=== PATIENT | female | born 1985 | race Caucasian/White ===

== ENCOUNTER 2024-03-07 16:15 | Emergency (ER) | payer MEDICAID ==
[~2024-03-07] VITALS: Ht 157.5 cm; Wt 84.1 kg
[~2024-03-07 16:15] MED LIST: CYCL-1 PO; POTA-188 PO
[2024-03-07 16:28] VITALS: PULSE 107; O2SAT 100
[2024-03-07 18:15] VITALS: RESP 18; TEMP 97.7
== END 2024-03-07 18:18 | disposition home or self-care (01) ==
LOC: ER 16:15
DX: T65.891A Toxic effect of other specified substances, accidental (unintentional), initial encounter (principal); Y92.89 Other specified places as the place of occurrence of the external cause
CPT/HCPCS: 99283

== ENCOUNTER 2024-06-19 14:35 | Emergency (ER) | payer MEDICAID ==
[~2024-06-19] VITALS: Ht 157.5 cm; Wt 59.0 kg
[2024-06-19 14:41] VITALS: BP 225/125; PULSE 107; RESP 24; TEMP 97.4; O2SAT 98
[2024-06-19] MEDS: cloNIDine 0.1 mg tablet PO SCH (14:50)
[2024-06-19] MEDS ORDERED: cloNIDine 0.1 mg tablet PO ONE (14:50)
[2024-06-19] MEDS ORDERED: buprenorphine/naloxone 8MG-2MG SUBlingual film SL ONE (14:55)
[2024-06-19] MEDS: LORazepam 1 MG tablet PO ONE (14:59)
[2024-06-19] MEDS: buprenorphine/naloxone 8MG-2MG SUBlingual film SL SCH (14:59)
== END 2024-06-19 15:21 | disposition home or self-care (01) ==
LOC: ER 14:35
DX: F11.93 Opioid use, unspecified with withdrawal (principal); I10 Essential (primary) hypertension
CPT/HCPCS: 99283

== ENCOUNTER 2024-09-21 09:34 | Inpatient (IN) | payer MEDICAID ==
[~2024-09-21] VITALS: Ht 157.5 cm; Wt 59.1 kg
[2024-09-21] MEDS: buprenorphine/naloxone 8MG-2MG SUBlingual film SL SCH (09:50)
[2024-09-21] MEDS: normal saline 1000ML IV soln IVB ONE (10:20)
[2024-09-21] MEDS: cloNIDine 0.2 MG/24 HR patch (7 day patch) TD ONE (10:24)
[2024-09-21 10:48] LABS: BASOPHILS % (AUTO) 0.4 % (0-1); EOSINOPHILS % (AUTO) 0.1 % (0-6); HEMATOCRIT 51.7 % (35.0-45.0); HEMOGLOBIN 16.8 g/dl (12.0-16.0); LYMPHOCYTES # (AUTO) 1.4 X10'3 (1.1-4.8); LYMPHOCYTES % (AUTO) 13.9 % (21-51); MEAN CORPUSCULAR HEMOGLOBIN 26.1 PG (27.0-31.0); MEAN CORPUSCULAR HGB CONC 32.4 g/dL (33.0-36.5); MEAN CORPUSCULAR VOLUME 80.3 FL (78-98); MONOCYTES # (AUTO) 0.4 X10'3 (0-0.9); MONOCYTES % (AUTO) 4.3 % (2-12); NEUTROPHILS % (AUTO) 81.3 % (42-75); PLATELET COUNT 407 X10'3 (140-440); RED BLOOD COUNT 6.44 X10'6 (4.20-5.60); RED CELL DISTRIBUTION WIDTH 18.2 % (11.5-14.5); WHITE BLOOD COUNT 9.8 X10'3 (4.5-11.0)
[2024-09-21 10:59] LABS: ALANINE AMINOTRANSFERASE 91 U/L (12-78); ALBUMIN 4.2 G/DL (3.4-5.0); ALBUMIN/GLOBULIN RATIO 0.8 (1.1-1.5); ALKALINE PHOSPHATASE 111 IU/L (46-116); ANION GAP 12 (8-16); ASPARTATE AMINO TRANSFERASE 59 U/L (10-37); BLOOD UREA NITROGEN 13 MG/DL (7-18); BUN/CREATININE RATIO 20.3 (10.0-20.0); CALCIUM 9.4 MG/DL (8.5-10.1); CHLORIDE 99 MMOL/L (99-107); CREATININE 0.64 MG/DL (0.40-0.90); GLUCOSE 88 MG/DL (70-104); POTASSIUM 3.2 MMOL/L (3.5-5.1); SODIUM 137 MMOL/L (135-145); TOTAL CARBON DIOXIDE 26.4 MMOL/L (24-32); TOTAL PROTEIN 9.8 G/DL (6.4-8.2); eCRCL 92 ML/MIN; eGFR > 90 ML/MIN
[2024-09-21 11:07] LABS: PRO BRAIN NATRIURETIC PEPTIDE 5442 PG/ML (0-125)
[2024-09-21] MEDS: diazepam inj 5 MG/ML inj. IV ONE (11:42)
[2024-09-21] MEDS: HYDROmorphone inj. 0.5 MG/0.5 ML DISP.SYRIN IV ONE (11:43)
[2024-09-21] MEDS: ondansetron/PF 4mg/2ml inj IV ONE (11:44)
[2024-09-21] MEDS: hydrALAZINE 20mg/ml inj. IV ONE ×2 (12:18→13:23)
[2024-09-21] MEDS ORDERED: magnesium sulf-water 2g/50mL 50 ML IV PRN (13:15)
[2024-09-21] MEDS ORDERED: mag hydrox/Alum hydrox/simeth 30ml oral suspension PO PRN (13:15)
[2024-09-21] MEDS ORDERED: ondansetron 4mg rapidly disintigrating tab PO PRN (13:15)
[2024-09-21] MEDS ORDERED: morphine 2 MG/ML inj. syringe IV PRN (13:15)
[2024-09-21] MEDS ORDERED: magnesium hydroxide 30ml (MOM) UD suspension PO PRN (13:15)
[2024-09-21] MEDS ORDERED: HYDROcodone/acetaminophen 10/325mg tab PO PRN (13:15)
[2024-09-21] MEDS ORDERED: potassium Cl 40MEQ/1/2NS 520ml 520 ML IV PRN (13:15)
[2024-09-21] MEDS ORDERED: acetaminophen 325mg tablet PO PRN ×2 (13:15)
[2024-09-21] MEDS ORDERED: magnesium sulf-water 4G/100mL 100 ML IV PRN (13:15)
[2024-09-21] MEDS ORDERED: potassium Cl 20 mEq SR tablet PO PRN (13:15)
[2024-09-21] MEDS ORDERED: naloxone 0.4 mg/ml inj IV PRN (13:15)
[2024-09-21] MEDS ORDERED: HYDROcodone/acetaminophen 5mg/325mg tablet PO PRN (13:15)
[2024-09-21] MEDS: labetalol 20mg/4ml (5mg/ml) syringe IV STA ×2 (13:34→18:19)
[2024-09-21 13:44] LABS: ETHANOL < 10 MG/DL (<10)
[2024-09-21] MEDS: morphine 2 MG/ML inj. syringe IV PRN (13:54)
[2024-09-21] MEDS: labetalol 20mg/4ml (5mg/ml) syringe IV ONE (15:00)
[2024-09-21] MEDS ORDERED: NO HOME MEDS (15:12)
[2024-09-21] MEDS ORDERED: hydrALAZINE 20mg/ml inj. IV PRN ×2 (16:00→16:05)
[2024-09-21 16:19] LABS: URINE AMPHETAMINE SCREEN POSITIVE (Neg); URINE BARBITUATE SCREEN NEGATIVE (Neg); URINE BENZODIAZEPINES SCREEN NEGATIVE (Neg); URINE CANNABINOID SCREEN NEGATIVE (Neg); URINE COCAINE SCREEN NEGATIVE (Neg); URINE METHADONE SCREEN NEGATIVE (Neg); URINE OPIATE SCREEN POSITIVE (Neg); URINE PHENCYCLIDINE SCREEN NEGATIVE (Neg)
[2024-09-21] MEDS: ondansetron/PF 4mg/2ml inj IV PRN (18:29)
[2024-09-21 18:44] VITALS: BP 173/106; PULSE 82; RESP 27; TEMP 98.1; O2SAT 99
[2024-09-21] MEDS: carvedilol 6.25mg tablet PO SCH (19:40)
[2024-09-21] MEDS: amLODIPine 5mg tablet PO ONE (19:40)
[2024-09-21] MEDS: losartan 50mg tablet PO ONE (19:41)
[2024-09-21] MEDS: heparin, porcine 5000 units/ml vial SQ SCH (19:43)
[2024-09-21] MEDS: docusate sod 100mg capsule PO SCH (19:47)
[2024-09-21 20:00] VITALS: RESP 27; O2SAT 99
[2024-09-21] MEDS: K and/or MAG REPLACEMENT MC SCH (20:00)
[2024-09-21] MEDS: labetalol 20mg/4ml (5mg/ml) syringe IV PRN (20:55)
[2024-09-21] MEDS: nitroGLYCERIN 0.1mg/hour patch TD ONE (21:14)
[2024-09-21] MEDS: potassium Cl 20 mEq SR tablet PO PRN (21:17)
[2024-09-21 22:00] VITALS: BP 178/96; PULSE 86; RESP 19; TEMP 97.5; O2SAT 96
[2024-09-21] MEDS ORDERED: hydrALAZINE 20mg/ml inj. IV ONE (22:10)
[2024-09-21] MEDS: hydrALAZINE 20mg/ml inj. IV PRN (23:41)
[2024-09-21] MEDS: methadone 10mg tablet PO SCH (23:44)
[2024-09-21] MEDS: aspirin 81mg, enteric-coated 1 TAB TABLET.DR PO ONE (23:45)
[2024-09-22] VITALS (13 sets, daily range): BP systolic 140–171; BP diastolic 89–110; PULSE 78–97; RESP 9–29; TEMP 96.7–98.2; O2SAT 95–98
[2024-09-22 07:05] LABS: BASOPHILS % (AUTO) 0.1 % (0-1); EOSINOPHILS % (AUTO) 0.1 % (0-6); HEMATOCRIT 46.7 % (35.0-45.0); LYMPHOCYTES # (AUTO) 1.7 X10'3 (1.1-4.8); LYMPHOCYTES % (AUTO) 15.5 % (21-51); MEAN CORPUSCULAR HEMOGLOBIN 26.1 PG (27.0-31.0); MEAN CORPUSCULAR HGB CONC 32.1 g/dL (33.0-36.5); MEAN CORPUSCULAR VOLUME 81.3 FL (78-98); MEAN PLATELET VOLUME 7.6 FL (7.4-10.4); MONOCYTES # (AUTO) 1.1 X10'3 (0-0.9); MONOCYTES % (AUTO) 9.5 % (2-12); NEUTROPHILS # (AUTO) 8.4 X10'3 (1.8-7.7); NEUTROPHILS % (AUTO) 74.8 % (42-75); PLATELET COUNT 374 X10'3 (140-440); RED BLOOD COUNT 5.74 X10'6 (4.20-5.60); RED CELL DISTRIBUTION WIDTH 18.9 % (11.5-14.5); WHITE BLOOD COUNT 11.2 X10'3 (4.5-11.0)
[2024-09-22 07:34] LABS: ALANINE AMINOTRANSFERASE 62 U/L (12-78); ALBUMIN 3.4 G/DL (3.4-5.0); ALBUMIN/GLOBULIN RATIO 0.8 (1.1-1.5); ALKALINE PHOSPHATASE 82 IU/L (46-116); ANION GAP 12 (8-16); ASPARTATE AMINO TRANSFERASE 37 U/L (10-37); BILIRUBIN,TOTAL 0.7 MG/DL (0.1-1.0); BLOOD UREA NITROGEN 13 MG/DL (7-18); CALCIUM 8.9 MG/DL (8.5-10.1); CHLORIDE 101 MMOL/L (99-107); GLUCOSE 108 MG/DL (70-104); MAGNESIUM 2.1 MG/DL (1.5-2.4); POTASSIUM 3.4 MMOL/L (3.5-5.1); SODIUM 136 MMOL/L (135-145); TOTAL CARBON DIOXIDE 23.5 MMOL/L (24-32); TOTAL PROTEIN 7.9 G/DL (6.4-8.2); eCRCL 118 ML/MIN; eGFR > 90 ML/MIN
[2024-09-22] MEDS: amLODIPine 5mg tablet PO SCH (10:32)
[2024-09-22] MEDS: aspirin 81mg, enteric-coated 1 TAB TABLET.DR PO SCH (10:33)
[2024-09-22] MEDS: losartan 50mg tablet PO SCH (10:35)
[2024-09-22] MEDS: nitroGLYCERIN 0.1mg/hour patch TD SCH (10:40)
[2024-09-22] MEDS: normal saline 1000ml 1,000 ML IV SCH (10:48)
[2024-09-23 02:00] VITALS: BP 144/86; PULSE 82; RESP 22; TEMP 97.5; O2SAT 97
[2024-09-23 07:00] VITALS: BP 158/90; PULSE 85; RESP 22; TEMP 98.1; O2SAT 97
[2024-09-23 07:32] LABS: ALANINE AMINOTRANSFERASE 50 U/L (12-78); ALBUMIN 3.1 G/DL (3.4-5.0); ALBUMIN/GLOBULIN RATIO 0.7 (1.1-1.5); ALKALINE PHOSPHATASE 73 IU/L (46-116); ANION GAP 9 (8-16); ASPARTATE AMINO TRANSFERASE 22 U/L (10-37); BASOPHILS % (AUTO) 0.2 % (0-1); BILIRUBIN,TOTAL 0.6 MG/DL (0.1-1.0); BLOOD UREA NITROGEN 15 MG/DL (7-18); BUN/CREATININE RATIO 32.6 (10.0-20.0); CALCIUM 8.7 MG/DL (8.5-10.1); CHLORIDE 106 MMOL/L (99-107); CREATININE 0.46 MG/DL (0.40-0.90); EOSINOPHILS % (AUTO) 0.2 % (0-6); GLUCOSE 97 MG/DL (70-104); HEMATOCRIT 45.3 % (35.0-45.0); HEMOGLOBIN 14.5 g/dl (12.0-16.0); LYMPHOCYTES % (AUTO) 18.9 % (21-51); MAGNESIUM 2.3 MG/DL (1.5-2.4); MEAN CORPUSCULAR HEMOGLOBIN 26.2 PG (27.0-31.0); MEAN CORPUSCULAR VOLUME 81.8 FL (78-98); MEAN PLATELET VOLUME 7.7 FL (7.4-10.4); MONOCYTES # (AUTO) 1.1 X10'3 (0-0.9); MONOCYTES % (AUTO) 10.5 % (2-12); NEUTROPHILS # (AUTO) 7.2 X10'3 (1.8-7.7); NEUTROPHILS % (AUTO) 70.2 % (42-75); PLATELET COUNT 350 X10'3 (140-440); POTASSIUM 3.8 MMOL/L (3.5-5.1); PRO BRAIN NATRIURETIC PEPTIDE 689 PG/ML (0-125); RED BLOOD COUNT 5.54 X10'6 (4.20-5.60); RED CELL DISTRIBUTION WIDTH 18.9 % (11.5-14.5); SODIUM 139 MMOL/L (135-145); TOTAL CARBON DIOXIDE 24.3 MMOL/L (24-32); TOTAL PROTEIN 7.4 G/DL (6.4-8.2); WHITE BLOOD COUNT 10.3 X10'3 (4.5-11.0); eCRCL 129 ML/MIN; eGFR > 90 ML/MIN
[2024-09-23 08:00] VITALS: RESP 20; O2SAT 97
[2024-09-23 08:01] VITALS: BP_SYST 158; PULSE 85
[2024-09-23] MEDS ORDERED: ASPI-1071 PO (10:55)
[2024-09-23] MEDS ORDERED: LOSA50TA64 PO (10:55)
[2024-09-23] MEDS ORDERED: NOR5T PO (10:55)
[2024-09-23] MEDS ORDERED: CARV6.253 PO (10:55)
== END 2024-09-23 14:23 | disposition home or self-care (01) | DRG 199 ==
LOC: ER 09:34 → ED HOLD 13:22 → UNDOADMIN 13:22 → ED HOLD 18:52 → PCU 3S 18:52 → ED HOLD 20:39
PROVIDERS: ADMIT Nurse Practitioner Family; ATTEND Nurse Practitioner Family
DX: I16.1 Hypertensive emergency (principal); G93.41 Metabolic encephalopathy; I1A.0 Resistant hypertension; I10 Essential (primary) hypertension; G40.909 Epilepsy, unspecified, not intractable, without status epilepticus; F15.10 Other stimulant abuse, uncomplicated; R79.89 Other specified abnormal findings of blood chemistry; F11.23 Opioid dependence with withdrawal; E87.6 Hypokalemia; Z88.8 Allergy status to other drugs, medicaments and biological substances
CPT/HCPCS: 36415; 71045; 80053; 80305; 80320; 83605; 83735; 83880; 84484; 85025; 87081; 93005; 93306; 96374; 96375; 97116; 97161; 97530; 99285; G0378; J0360; J1171; J1644; J2270; J2405; J3360; J3490; J7030

== ENCOUNTER 2024-11-18 11:36 | Inpatient (IN) | payer MEDICAID ==
[~2024-11-18] VITALS: Ht 170.2 cm; Wt 71.0 kg
[~2024-11-18 11:36] MED LIST changes: +ASPI-1071 PO; +CARV6.253 PO; -CYCL-1 PO; +LOSA50TA64 PO; +NOR5T PO; -POTA-188 PO
--- NOTE | 2024-11-18 11:48 | Physician Documentation ---
History of Present Illness ~ Stated Complaint: OD Time Seen by MD: 11:44 OK to notify your PCP?: Yes Primary Medical Doctor: NONE Source: patient, RN/MD, EMS, RN notes reviewed, EMS notes reviewed, old records Mode of Arrival: EMS Exam Limitations: no limitations HPI 39 year old female presents to the emergency department via EMS for complaints of withdrawals. Per EMS patient states that she is trying to kick fentanyl. Patient states that she has not used in three days. She was found by [employer] laying down outside of the station and sent by EMS to be evaluated. En route she had a blood pressure of 250/150 with tachycardia. Patient selectively answers questions and has been noncompliant with treatments. Patient denies any other associated symptoms at this time. Patient denies any other alleviating or exacerbating factors Medication Reconciliation Allergies: Coded Allergies: buprenorphine (Verified Adverse Reaction, Mild, makes me have bad withdrawals I don't want it!, 11/18/24) naloxone (Verified Adverse Reaction, Mild, makes me have bad withdrawals I don't want it!, 11/18/24) Miscellaneous Medications Home Med List (No Home Medications), (Reported) Discontinued Medications Amlodipine Besylate (Amlodipine Besylate), 10 MG PO DAILY Discontinued Reason: patient no longer taking Aspirin (Ecotrin*), 1 TAB PO DAILY Discontinued Reason: patient no longer taking Carvedilol (Carvedilol), 6.25 MG PO BID Discontinued Reason: patient no longer taking Losartan Potassium (Losartan Potassium), 100 MG PO DAILY Discontinued Reason: patient no longer taking Past Medical History Patient History: Patient reports no known family medical history. Drug Use: other Review of Systems All Other Systems at this time: Reviewed and Negative ROS As stated above in the HPI, otherwise all systems are reviewed and negative. Physical Exam Vital Signs: RN Vital Signs have been reviewed: Yes Pulse Oximetry Reflects: adequate oxygenation Physical Exam General: Foul smelling, patient has soiled herself. She is incontinent and agitated. The patient is well developed, well nourished, nontoxic appearing and is in no acute distress. Skin: [place], warm and dry with no rashes. HEENT: Head was normocephalic and atraumatic. Eyes - pupils equal, round, reactive to light and accommodation. Extraocular movements were intact. Conjunctivae were nonicteric. Ears - bilateral tympanic membranes were normal. The mouth and oropharynx were clear with moist mucous membranes. There were no pharyngeal exudates or erythema. Neck: Supple and nontender. There was no jugular venous distention, lymphadenopathy, thyromegaly or masses. Chest: Clear to auscultation bilaterally without wheezes, rales or rhonchi. No accessory muscle use. No dullness to percussion. Heart: Rapid heart rate. S1, S2. No murmurs. Palpation of the chest wall was normal. No rubs or thrills. Abdomen: Increased bowel sounds. Soft, nontender and nondistended. No guarding or rebound. No hepatosplenomegaly or palpable masses. Extremities: No cyanosis, clubbing or edema. The patient moves all extremities. Pulses were equal and symmetric. Neurologic: Cranial nerves II-XII were intact. Sensation was intact to light touch throughout. Motor strength was 5/5 in all four extremities. Deep tendon reflexes were intact in both upper and lower extremities. Psychologic: The patient was oriented to person, place and time. The patient demonstrated appropriate judgement and insight. Progress Progress Note 1636: The case was discussed with Dr. Abebe who was informed on the patients case and kindly agreed to admission. Results/Orders Reviewed/noted all lab results: Yes Results/Orders Orders - CHUN PARIKH MD Substance Use Navigator (11/18/24 11:44) Hcg, Ur Ql (11/18/24 11:45) Urinalysis, Cult If Indicated (11/18/24 11:45) Drug Screen, Urine (11/18/24 11:45) Page Hospitalist (11/18/24 16:06) Fill Out Med Reconciliation (11/18/24 16:06) Completed Orders - CHUN PARIKH MD Cbc/Diff (11/18/24 11:45) Lipase (11/18/24 11:45) Ethanol (11/18/24 11:45) MG (11/18/24 11:45) Ondansetron Disint. Tablet (Zofran Odt T (11/18/24 11:45) CMP (11/18/24 11:45) Diazepam Tablet (Valium Tablet) (11/18/24 13:00) Magnesium Sulf-Water 2g/50ml (Magnesium (11/18/24 16:20) Potassium Cl 10meq/100ml Bag (Potassium (11/18/24 16:20) Ondansetron Inj. (Zofran 4mg/2ml Vial) (11/18/24 16:25) Normal Saline 1000ml (Sodium Chloride 10 (11/18/24 16:25) Medications Received in ER Medications (Trade) Dose Ordered Sig/Trudi Route PRN Reason Start Time Stop Time Status Last Admin Dose Admin (Zofran ODT tablet) 4 mg ONCE ONCE PO 11/18/24 11:45 11/18/24 11:47 DC 11/18/24 12:23 4 MG (Valium tablet) 10 mg ONCE ONCE PO 11/18/24 13:00 11/18/24 13:01 DC 11/18/24 13:23 10 MG Magnesium Sulfate 50 ml @ 25 mls/hr ONCE ONCE IV 11/18/24 16:20 11/18/24 18:21 DC 11/18/24 17:03 25 MLS/HR Potassium Chloride 100 ml @ 100 mls/hr ONCE ONCE IV 11/18/24 16:20 11/18/24 17:19 DC 11/18/24 17:03 100 MLS/HR (Zofran 4mg/2ml vial) 4 mg ONCE ONCE IV 11/18/24 16:25 11/18/24 16:26 DC 11/18/24 17:05 4 MG (sodium chloride 1000ml IV soln) 1,000 ml ONCE ONCE IVB 11/18/24 16:25 11/18/24 16:26 DC 11/18/24 17:04 1,000 ML (Zestril tablet) 20 mg ONCE ONCE PO 11/18/24 16:40 11/18/24 16:42 DC 11/18/24 17:15 20 MG (Norvasc tablet) 10 mg ONCE ONCE PO 11/18/24 16:40 11/18/24 16:42 DC 11/18/24 17:15 10 MG Vital Signs 11/18/24 11/18/24 11:58 12:36 Temp 97.5 Pulse 120 Resp 18 22 B/P (MAP) 197/141 Pulse Ox 100 O2 Flow Rate 0 Laboratory Tests Test 11/18/24 13:47 White Blood Count 12.4 H Red Blood Count 6.67 H Hemoglobin 17.5 H Hematocrit 53.7 H Mean Corpuscular Volume 80.6 Mean Corpuscular Hemoglobin 26.3 L Mean Corpuscular Hemoglobin Concent 32.6 L Red Cell Distribution Width 17.2 H Platelet Count 280 Mean Platelet Volume 7.1 L Neutrophils (%) (Auto) 84.0 H Lymphocytes (%) (Auto) 10.4 L Monocytes (%) (Auto) 5.4 Eosinophils (%) (Auto) 0.1 Basophils (%) (Auto) 0.1 Neutrophils # (Auto) 10.5 H Lymphocytes # (Auto) 1.3 Monocytes # (Auto) 0.7 Eosinophils # (Auto) 0.0 Basophils # (Auto) 0.0 CBC Comment Sodium Level 136 Potassium Level 3.2 L Chloride Level 101 Carbon Dioxide Level 21.9 L Anion Gap 13 Blood Urea Nitrogen 15 Creatinine 0.76 Estimated GFR/1.73 m2 84 BUN/Creatinine Ratio 19.7 Glucose Level 127 H Calcium Level 9.2 Magnesium Level 1.8 Total Bilirubin 0.8 Aspartate Amino Transf (AST/SGOT) 43 H Alanine Aminotransferase (ALT/SGPT) 50 Alkaline Phosphatase 114 Total Protein 8.4 H Albumin 3.6 Globulin 4.8 H Albumin/Globulin Ratio 0.8 L Lipase 18 Chemistry Comments Ethyl Alcohol Level < 10 Re-Evaluation Re-Evaluation : Re-Evaluation: Improved, Unchanged Progress Patient was seen and examined. Patient is given reassurance. The patient is homeless has poor social support found on the ground. She has soiled with uncontrolled diarrhea. She states she has not had heroin in three days. She is vomiting her blood pressure is high and she has a high heart rate as well. Laboratory works were a little concerning her white count shows an elevated white count of 12.4 with hemoconcentration of hemoglobin hematocrit of 17.5 and 53.7. Platelets 280 there is a left shift of 84. Patient denies any cough. She has fevers and chills but associates had more to her withdrawal symptoms. Alcohol level is negative urinalysis is pending. Patient's lactic acid is reassuring at 1.4. Patient's chemistries show a low potassium at 3.2. Also some metabolic acidosis with a CO2 of 21.9 kidney functions are within normal limits LFTs within normal limits. Lipase is 18. Patient received fluids antiemetics followed by benzodiazepines. Patient was offered Suboxone she states she has not allergy. Patient's vitals were also a bit abnormal with a electrolyte abnormalities which are being supplemented because she was vomiting most likely will not be able to tolerate oral medications. The patient was then admitted for further workup. Continuous molecular modeler interpretation shows sinus tachycardia heart rate 120s, abnormal, my interpretation. Pulse oximetry monitor interpretation shows normal oxygenation at 98% room air, normal, my interpretation. Medical Decision Making Additional info obtained from: old records Differential Dx:Considerations: Include: dehydration, Delirium Tr., DKA, encephalopathy, hypercalcemia, hypernatremia, hyponatremia, hypoxia, postictal, drug overdose, encephalopathy, ETOH intoxication, medication toxicity, infection - sepsis, infection - UTI, renal failure, respiratory failure, hyperthermia, hypothermia, other Departure Time of Disposition: 16:33 Disposition: ADMITTED INPATIENT Admitted to Inpatient Unit: yes, to hospitalist Admission Level of Care: Med/Surg with Tele Impression: Primary Impression: Vomiting Qualified Codes: R11.14 - Bilious vomiting Additional Impressions: Diarrhea Qualified Codes: K59.1 - Functional diarrhea Opiate withdrawal Condition: Fair Referrals: NO PRIMARY CARE PROVIDER (PCP) Education Educated: Patient, Family Educated regarding: diagnosis, treatment, prognosis, need for follow up, other Signature Scribe Signature: Scribed for Chun Parikh MD by Cherelle Oliveira . 11/18/24 11:53 Attestation: The note accurately reflects work and decisions made by me.Chun Parikh MD 11/18/24 11:48 CHUN PARIKH MD November 18, 2024 11:48 CHERELLE DUNBAR November 18, 2024 11:53
[2024-11-18] MEDS: ondansetron 4mg rapidly disintigrating tab PO ONE (12:23)
[2024-11-18] MEDS: diazepam 5mg tablet PO ONE (13:23)
[2024-11-18 13:56] LABS: BASOPHILS % (AUTO) 0.1 % (0-1); EOSINOPHILS % (AUTO) 0.1 % (0-6); HEMATOCRIT 53.7 % (35.0-45.0); HEMOGLOBIN 17.5 g/dl (12.0-16.0); LYMPHOCYTES # (AUTO) 1.3 X10'3 (1.1-4.8); LYMPHOCYTES % (AUTO) 10.4 % (21-51); MEAN CORPUSCULAR HEMOGLOBIN 26.3 PG (27.0-31.0); MEAN CORPUSCULAR HGB CONC 32.6 g/dL (33.0-36.5); MEAN CORPUSCULAR VOLUME 80.6 FL (78-98); MEAN PLATELET VOLUME 7.1 FL (7.4-10.4); MONOCYTES # (AUTO) 0.7 X10'3 (0-0.9); MONOCYTES % (AUTO) 5.4 % (2-12); NEUTROPHILS # (AUTO) 10.5 X10'3 (1.8-7.7); PLATELET COUNT 280 X10'3 (140-440); RED BLOOD COUNT 6.67 X10'6 (4.20-5.60); RED CELL DISTRIBUTION WIDTH 17.2 % (11.5-14.5); WHITE BLOOD COUNT 12.4 X10'3 (4.5-11.0)
[2024-11-18 14:13] LABS: ALANINE AMINOTRANSFERASE 50 U/L (12-78); ALBUMIN 3.6 G/DL (3.4-5.0); ALBUMIN/GLOBULIN RATIO 0.8 (1.1-1.5); ALKALINE PHOSPHATASE 114 IU/L (46-116); ANION GAP 13 (8-16); ASPARTATE AMINO TRANSFERASE 43 U/L (10-37); BILIRUBIN,TOTAL 0.8 MG/DL (0.1-1.0); BLOOD UREA NITROGEN 15 MG/DL (7-18); BUN/CREATININE RATIO 19.7 (10.0-20.0); CALCIUM 9.2 MG/DL (8.5-10.1); CHLORIDE 101 MMOL/L (99-107); CREATININE 0.76 MG/DL (0.40-0.90); ETHANOL < 10 MG/DL (<10); GLUCOSE 127 MG/DL (70-104); LIPASE 18 U/L (16-77); MAGNESIUM 1.8 MG/DL (1.5-2.4); POTASSIUM 3.2 MMOL/L (3.5-5.1); SODIUM 136 MMOL/L (135-145); TOTAL CARBON DIOXIDE 21.9 MMOL/L (24-32); TOTAL PROTEIN 8.4 G/DL (6.4-8.2); eCRCL 96 ML/MIN; eGFR 84 ML/MIN
[2024-11-18] MEDS ORDERED: HYDROcodone/acetaminophen 5mg/325mg tablet PO PRN (16:40)
[2024-11-18] MEDS ORDERED: potassium Cl 40MEQ/1/2NS 520ml 520 ML IV PRN (16:40)
[2024-11-18] MEDS ORDERED: acetaminophen 325mg tablet PO PRN ×2 (16:40)
[2024-11-18] MEDS ORDERED: potassium Cl 20mEq in NS 1,000 ML IV SCH (16:40)
[2024-11-18] MEDS ORDERED: morphine 2 MG/ML inj. syringe IV PRN (16:40)
[2024-11-18] MEDS ORDERED: magnesium sulf-water 2g/50mL 50 ML IV PRN (16:40)
[2024-11-18] MEDS ORDERED: magnesium Cl slow-release 64mg tablet PO PRN (16:40)
[2024-11-18] MEDS ORDERED: potassium Cl 20 mEq SR tablet PO PRN (16:40)
[2024-11-18] MEDS ORDERED: magnesium sulf-water 4G/100mL 100 ML IV PRN (16:40)
[2024-11-18] MEDS ORDERED: CefTRIAXone 2gm/D5W 50ml BAG 50 ML IV SCH ×2 (16:45→18:30)
[2024-11-18] MEDS ORDERED: haloperidol lactate 5mg/ml inj IM PRN ×2 (16:50→17:20)
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
[2024-11-18] MEDS: magnesium sulf-water 2g/50mL 50 ML IV ONE (17:03)
[2024-11-18] MEDS: potassium CL 10mEq/100ml bag 100 ML IV ONE (17:03)
[2024-11-18] MEDS: normal saline 1000ML IV soln IVB ONE (17:04)
[2024-11-18] MEDS: ondansetron/PF 4mg/2ml inj IV ONE (17:05)
[2024-11-18] MEDS: lisinopril 10 MG tablet PO ONE (17:15)
[2024-11-18] MEDS: amLODIPine 5mg tablet PO ONE (17:15)
[2024-11-18] MEDS: nicotine 21mg patch - 24 hr TD SCH (17:20)
[2024-11-18] MEDS ORDERED: haloperidol 5mg tablet PO PRN (17:20)
[2024-11-18] MEDS: folic acid 1mg/0.2ml inj IV SCH (17:20)
[2024-11-18] MEDS ORDERED: dextrose 50%-water 50ml dispensing syringe IV PRN (17:20)
[2024-11-18] MEDS: atenolol 50mg tablet PO SCH (17:24)
[2024-11-18] MEDS: normal saline 500ml IV soln 500 ML IV ONE (17:25)
[2024-11-18] MEDS ORDERED: NO HOME MEDS (17:50)
[2024-11-18] MEDS: potassium Cl 20mEq in NS 1,000 ML IV SCH (18:30)
[2024-11-18] MEDS: heparin, porcine 5000 units/ml vial SQ SCH (20:00)
[2024-11-18] MEDS: thiamine 100mg/ml 2ml inj. IV SCH (21:00)
[2024-11-18] MEDS: CefTRIAXone 1000mg IM Kit (w/lidocaine diluent) IM ONE (21:54)
[2024-11-18] MEDS: hyDRALAzine 10mg tablet PO ONE (23:25)
[2024-11-19] VITALS (8 sets, daily range): BP systolic 150–203; BP diastolic 91–139; PULSE 65–82; RESP 18–26; TEMP 97.4–98.4; O2SAT 95–98
[2024-11-19] MEDS: potassium Cl 20 mEq SR tablet PO PRN (03:34)
[2024-11-19 03:55] LABS: BILIRUBIN,URINE NEGATIVE (Neg); CLARITY,URINE CLEAR (Clear); COLOR,URINE YELLOW (Yellow); GLUCOSE, URINE NEGATIVE (Neg); KETONES,URINE NEGATIVE (Neg); LEUKOCYTE ESTERASE ,URINE NEGATIVE (Neg); NITRITES, URINE POSITIVE (Neg); OCCULT BLOOD,URINE TRACE-INTACT (Neg); PROTEIN,URINE 100 mg/dl (Neg); URINE HCG NEGATIVE (NEG); UROBILINOGEN,URINE 0.2 E.U/dL (0.2-1.0)
[2024-11-19 04:01] LABS: UA COLLECTION TYPE NON-SPECIFIED
[2024-11-19 04:03] LABS: MUCUS STRANDS FEW /LPF (Neg); RBC,URINE 0-2 /HPF (0-2); SQUAMOUS EPITHELIAL CELL,UR MODERATE /LPF (FEW); WBC,URINE 0-4 /HPF (0-4)
[2024-11-19 04:04] LABS: BACTERIA,URINE 2+ /HPF (Neg)
[2024-11-19 04:07] LABS: URINE AMPHETAMINE SCREEN POSITIVE (Neg); URINE BARBITUATE SCREEN NEGATIVE (Neg); URINE BENZODIAZEPINES SCREEN POSITIVE (Neg); URINE CANNABINOID SCREEN NEGATIVE (Neg); URINE COCAINE SCREEN NEGATIVE (Neg); URINE METHADONE SCREEN NEGATIVE (Neg); URINE OPIATE SCREEN NEGATIVE (Neg); URINE PHENCYCLIDINE SCREEN NEGATIVE (Neg)
[2024-11-19 06:43] LABS: BASOPHILS % (AUTO) 0.3 % (0-1); EOSINOPHILS % (AUTO) 0.1 % (0-6); HEMATOCRIT 51.3 % (35.0-45.0); HEMOGLOBIN 17.3 g/dl (12.0-16.0); LYMPHOCYTES # (AUTO) 1.7 X10'3 (1.1-4.8); MEAN CORPUSCULAR HGB CONC 33.8 g/dL (33.0-36.5); MEAN CORPUSCULAR VOLUME 79.7 FL (78-98); MEAN PLATELET VOLUME 7.3 FL (7.4-10.4); MONOCYTES # (AUTO) 1.1 X10'3 (0-0.9); MONOCYTES % (AUTO) 9.8 % (2-12); NEUTROPHILS # (AUTO) 7.9 X10'3 (1.8-7.7); NEUTROPHILS % (AUTO) 73.8 % (42-75); PLATELET COUNT 319 X10'3 (140-440); RED BLOOD COUNT 6.43 X10'6 (4.20-5.60); RED CELL DISTRIBUTION WIDTH 17.3 % (11.5-14.5); WHITE BLOOD COUNT 10.7 X10'3 (4.5-11.0)
[2024-11-19 06:59] LABS: ALANINE AMINOTRANSFERASE 43 U/L (12-78); ALBUMIN 3.5 G/DL (3.4-5.0); ALBUMIN/GLOBULIN RATIO 0.7 (1.1-1.5); ALKALINE PHOSPHATASE 104 IU/L (46-116); ANION GAP 9 (8-16); ASPARTATE AMINO TRANSFERASE 34 U/L (10-37); BILIRUBIN,TOTAL 0.6 MG/DL (0.1-1.0); BLOOD UREA NITROGEN 20 MG/DL (7-18); CALCIUM 9.3 MG/DL (8.5-10.1); CHLORIDE 100 MMOL/L (99-107); GLUCOSE 106 MG/DL (70-104); MAGNESIUM 2.3 MG/DL (1.5-2.4); PHOSPHORUS 3.3 MG/DL (2.3-4.5); POTASSIUM 3.8 MMOL/L (3.5-5.1); SODIUM 135 MMOL/L (135-145); TOTAL CARBON DIOXIDE 25.8 MMOL/L (24-32); TOTAL PROTEIN 8.2 G/DL (6.4-8.2); eCRCL 91 ML/MIN; eGFR 79 ML/MIN
[2024-11-19] MEDS: losartan 50mg tablet PO SCH ×2 (08:38→13:33)
[2024-11-19] MEDS: multivitamins, therapeutics tablet PO SCH (08:39)
[2024-11-19] MEDS: atenolol 50mg tablet PO SCH (08:41)
[2024-11-19] MEDS: CefTRIAXone 2gm/D5W 50ml BAG 50 ML IV SCH (09:32)
[2024-11-19] MEDS: hydrALAZINE 20mg/ml inj. IV ONE (10:25)
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
[2024-11-19] MEDS: normal saline 1000ml 1,000 ML IV SCH (12:44)
[2024-11-19] MEDS: ondansetron/PF 4mg/2ml inj IV PRN (12:49)
[2024-11-19] MEDS: haloperidol 5mg tablet PO PRN (17:01)
[2024-11-19] MEDS ORDERED: metoclopramide 5 mg/ml inj IV PRN (18:05)
--- NOTE | 2024-11-19 18:45 | CARDIOLOGY REPORT ---
APPROVED REPORT EXAM: Limited 2D, Doppler, and color-flow Echocardiogram. 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 Overall systolic function appears low nor mal. LVEF is 55%. RIGHT VENTRICLE RV appears normal in size and function. AORTIC VALVE The aortic valve is normal in structure. No insufficiency. MITRAL VALVE MV is thickened with no annular calcification. Trace mitral regurgitation. TRICUSPID VALVE The tricuspid valve is normal in structure. Trace tricuspid regurgitation. PULMONIC VALVE The pulmonary valve is normal in structure. Trace pulmonic regurgitation. GREAT VESSELS The IVC is normal in size and collapses >50% with inspiration. PERICARDIUM There is no pericardial effusion. Other Information Study Quality: Adequate
[2024-11-19] MEDS: LORazepam 2 mg/ml vial IV PRN (22:08)
[2024-11-19] MEDS: hydrALAZINE 20mg/ml inj. IV PRN (22:26)
[2024-11-20] VITALS (10 sets, daily range): BP systolic 140–192; BP diastolic 85–126; PULSE 85–107; RESP 13–33; TEMP 97.2–98; O2SAT 95–100
[2024-11-20 06:38] LABS: BASOPHILS % (AUTO) 0.3 % (0-1); EOSINOPHILS % (AUTO) 0.1 % (0-6); HEMATOCRIT 47.9 % (35.0-45.0); HEMOGLOBIN 15.9 g/dl (12.0-16.0); LYMPHOCYTES # (AUTO) 1.9 X10'3 (1.1-4.8); LYMPHOCYTES % (AUTO) 21.4 % (21-51); MEAN CORPUSCULAR HEMOGLOBIN 26.6 PG (27.0-31.0); MEAN CORPUSCULAR HGB CONC 33.1 g/dL (33.0-36.5); MEAN CORPUSCULAR VOLUME 80.4 FL (78-98); MEAN PLATELET VOLUME 7.5 FL (7.4-10.4); MONOCYTES % (AUTO) 10.6 % (2-12); NEUTROPHILS # (AUTO) 6.1 X10'3 (1.8-7.7); NEUTROPHILS % (AUTO) 67.6 % (42-75); PLATELET COUNT 291 X10'3 (140-440); RED BLOOD COUNT 5.96 X10'6 (4.20-5.60); RED CELL DISTRIBUTION WIDTH 17.7 % (11.5-14.5)
[2024-11-20 06:50] LABS: ALANINE AMINOTRANSFERASE 37 U/L (12-78); ALBUMIN 3.2 G/DL (3.4-5.0); ALBUMIN/GLOBULIN RATIO 0.8 (1.1-1.5); ALKALINE PHOSPHATASE 89 IU/L (46-116); ANION GAP 11 (8-16); ASPARTATE AMINO TRANSFERASE 24 U/L (10-37); BILIRUBIN,TOTAL 0.4 MG/DL (0.1-1.0); BLOOD UREA NITROGEN 18 MG/DL (7-18); CALCIUM 9.2 MG/DL (8.5-10.1); CHLORIDE 106 MMOL/L (99-107); CREATININE 0.72 MG/DL (0.40-0.90); GLUCOSE 116 MG/DL (70-104); MAGNESIUM 2.1 MG/DL (1.5-2.4); PHOSPHORUS 3.1 MG/DL (2.3-4.5); SODIUM 142 MMOL/L (135-145); TOTAL CARBON DIOXIDE 25.5 MMOL/L (24-32); TOTAL PROTEIN 7.4 G/DL (6.4-8.2); eCRCL 101 ML/MIN; eGFR 90 ML/MIN
[2024-11-20] MEDS: amLODIPine 5mg tablet PO SCH (08:06)
[2024-11-20] MEDS ORDERED: LORazepam 2 mg/ml vial IV PRN (17:20)
[2024-11-20] MEDS ORDERED: LORazepam 1 MG tablet PO PRN (17:20)
[2024-11-20] MEDS ORDERED: labetalol 20mg/4ml (5mg/ml) syringe IV PRN (17:35)
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
[2024-11-20] MEDS: cloNIDine 0.1 mg tablet PO SCH (21:26)
[2024-11-21 06:00] VITALS: BP 161/97; PULSE 88; RESP 24; TEMP 97.5; O2SAT 97
[2024-11-21 08:00] VITALS: RESP 24; O2SAT 97
[2024-11-21 11:00] VITALS: BP 135/80; PULSE 80; RESP 21; TEMP 97.3; O2SAT 98
[2024-11-21] MEDS ORDERED: LOSA50TA64 PO (14:02)
[2024-11-21] MEDS ORDERED: NOR5T PO (14:02)
[2024-11-21] MEDS ORDERED: MULT-25 PO (14:02)
[2024-11-21] MEDS ORDERED: FOLI1TAB27 PO (14:02)
[2024-11-21] MEDS ORDERED: CLON0.1T2 PO (14:02)
[2024-11-21] MEDS ORDERED: THIA50TA10 PO (14:02)
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
[2024-11-22] MEDS ORDERED: folic acid 1mg tablet PO SCH (08:00)
[2024-11-22] MEDS ORDERED: thiamine 100mg tablet PO SCH (08:00)
[2024-11-22] MEDS ORDERED: LORazepam 2 mg/ml vial IV PRN (17:20)
[2024-11-22] MEDS ORDERED: LORazepam 1 MG tablet PO PRN (17:20)
== END 2024-11-21 17:47 | disposition home or self-care (01) | DRG 199 ==
LOC: ER 11:36 → ED HOLD 16:45 → PCU 3S 11-19 04:52
PROVIDERS: ADMIT Internal Medicine; ATTEND Internal Medicine
PROC: 05HY33Z Insertion of Infusion Device into Upper Vein, Percutaneous Approach (ICD-10-PCS; principal; 2024-11-19)
PROC: B54NZZA Ultrasonography of Left Upper Extremity Veins, Guidance (ICD-10-PCS; 2024-11-19)
DX: I16.1 Hypertensive emergency (principal); G92.8 Other toxic encephalopathy; I67.4 Hypertensive encephalopathy; B95.62 Methicillin resistant Staphylococcus aureus infection as the cause of diseases classified elsewhere; E87.6 Hypokalemia; F17.210 Nicotine dependence, cigarettes, uncomplicated; D75.1 Secondary polycythemia; I10 Essential (primary) hypertension; N39.0 Urinary tract infection, site not specified; I25.2 Old myocardial infarction; E86.0 Dehydration; K59.1 Functional diarrhea; D72.829 Elevated white blood cell count, unspecified; F11.13 Opioid abuse with withdrawal; F15.10 Other stimulant abuse, uncomplicated; F13.10 Sedative, hypnotic or anxiolytic abuse, uncomplicated; Z88.8 Allergy status to other drugs, medicaments and biological substances; Z91.199 Patient's noncompliance with other medical treatment and regimen due to unspecified reason; Z79.899 Other long term (current) drug therapy
CPT/HCPCS: 36410; 36415; 76942; 80053; 80305; 80320; 81001; 81025; 83605; 83690; 83735; 84100; 85025; 87040; 87081; 87088; 92508; 92616; 93308; 96372; 97161; 97530; 99285; C1751; G0378; J0360; J0696; J1644; J2060; J2405; J3411; J3480; J3490; J7030; J7040

== ENCOUNTER 2025-02-17 08:38 | Emergency (ER) | payer MEDICAID ==
[~2025-02-17] VITALS: Ht 157.5 cm; Wt 74.0 kg
[~2025-02-17 08:38] MED LIST changes: -ASPI-1071 PO; -CARV6.253 PO; +CLON0.1T2 PO; +FOLI1TAB27 PO; +MULT-25 PO; +NO HOME MEDS; +THIA50TA10 PO
[2025-02-17 08:56] VITALS: TEMP 97.6
--- NOTE | 2025-02-17 09:36 | Physician Documentation ---
History of Present Illness ~ Chief Complaint: See Chief Complaint Stated Complaint: EVAL Time Seen by MD: 08:52 Primary Medical Doctor: NONE HPI 40-year-old female presents to the ED with a complaint of kicking." Upon further evaluation she is describing on getting off or withdrawing from fentanyl. He is adamant that she is allergic to Suboxone for which is unlikely.However, she says that clonidine helps with her withdrawal symptoms Denies any urinary symptoms ,patient is dry heaving during interview Day of Onset: Feb 17, 2025 Tetanus within 5 years: No Medication Reconciliation Allergies: Coded Allergies: buprenorphine (Verified Adverse Reaction, Mild, makes me have bad withdrawals I don't want it!, 11/18/24) naloxone (Verified Adverse Reaction, Mild, makes me have bad withdrawals I don't want it!, 11/18/24) Scheduled Amlodipine Besylate (Amlodipine Besylate), 10 MG PO DAILY Clonidine HCl (Clonidine HCl), 0.2 MG PO TID Clonidine HCl (Clonidine HCl), 1 TAB PO HS Folic Acid* (Folic Acid*), 1 MG PO DAILY Losartan Potassium (Losartan Potassium), 50 MG PO DAILY Multivitamin with Folic Acid (Thera Tablet), 1 EACH PO Q24H Sulfamethoxazole/Trimethoprim (Bactrim Ds Tablet), 1 TAB PO Q12H Thiamine HCl (Vitamin B-1), 2 TAB PO DAILY Miscellaneous Medications Home Med List (No Home Medications), (Reported) Past Medical History Patient History: Patient reports no known family medical history. Drug Use: other Review of Systems All Other Systems at this time: Reviewed and Negative ROS As stated above in the HPI, otherwise all systems are reviewed and negative. Physical Exam Vital Signs: Temperature: 97.6, Source: Temporal, Heart Rate: 103, Respiratory Rate: 20, BP: 179/114, Pulse Oximetry: 99, Weight: 74.000 Physical Exam General: Alert, no apparent distress. Respiratory: Lungs clear, no respiratory distress. Cardiovascular: Regular rate and rhythm, no murmurs. Gastrointestinal: Soft, nontender, nondistended. Bowels sounds present. Psychiatric: Normal mood and affect. Skin: Normal color, warm and dry. No edema, no ecchymosis. Progress Results/Orders Results/Orders Orders - DANY KOHLI CLEARING HOUSE CLERK Cult Urine + [address] (02/17/25 11:12) Completed Orders - DANY KOHLI CLEARING HOUSE CLERK Cbc/Diff (02/17/25 09:28) BMP (02/17/25 09:28) Clonidine 0.1mg/24 Hour Patch (Catapres (02/17/25 09:40) Normal Saline 1000ml (0.9% Sodium Chlori (02/17/25 10:00) Ua W/Microscopic, Cult If Ind (02/17/25 10:39) Cbc/Diff (02/17/25 12:07) Hydralazine Inj. (Apresoline Inj.) (02/17/25 13:05) Ondansetron Inj. (Zofran 4mg/2ml Vial) (02/17/25 14:00) Sulfamethox/Trimetho. Ds Tab (Septra Ds (02/17/25 14:00) Medications Received in ER Medications (Trade) Dose Ordered Sig/Trudi Route PRN Reason Start Time Stop Time Status Last Admin Dose Admin (Catapres 0.1mg/ 24 hour Patch) 1 patch ONCE ONCE TD 02/17/25 09:40 02/17/25 09:41 DC 02/17/25 10:02 1 PATCH (0.9% sodium chloride (NS) 1000ml IV soln) 2,000 ml ONCE ONCE IVB 02/17/25 10:00 02/17/25 10:01 DC 02/17/25 10:56 2,000 ML (Apresoline inj.) 10 mg ONCE ONCE IV 02/17/25 13:05 02/17/25 13:06 DC 02/17/25 13:49 10 MG (Zofran 4mg/2ml vial) 4 mg ONCE ONCE IV 02/17/25 14:00 02/17/25 14:01 DC 02/17/25 14:13 4 MG (Septra DS tab) 1 tab ONCE ONCE PO 02/17/25 14:00 02/17/25 14:15 DC 02/17/25 15:15 1 TAB Vital Signs 02/17/25 02/17/25 02/17/25 02/17/25 08:56 10:05 10:30 12:17 Temp 97.6 Pulse 103 109 109 Resp 20 16 20 B/P (MAP) 179/114 188/145 (159) 197/143 (161) Pulse Ox 99 96 99 02/17/25 02/17/25 02/17/25 13:00 13:49 15:34 Pulse 97 97 95 Resp 16 B/P (MAP) 207/120 (149) 185/126 Pulse Ox 99 Laboratory Tests Test 02/17/25 09:35 02/17/25 10:39 02/17/25 12:22 White Blood Count 15.1 H 14.4 H Red Blood Count 6.75 H 6.41 H Hemoglobin 19.6 *H 18.9 *H Hematocrit 57.6 H 55.1 H Mean Corpuscular Volume 85.4 85.9 Mean Corpuscular Hemoglobin 29.1 29.4 Mean Corpuscular Hemoglobin Concent 34.0 34.2 Red Cell Distribution Width 15.6 H 15.5 H Platelet Count 416 370 Mean Platelet Volume 7.7 8.1 Neutrophils (%) (Auto) 78.9 H 79.4 H Lymphocytes (%) (Auto) 11.6 L 11.7 L Monocytes (%) (Auto) 9.2 8.6 Eosinophils (%) (Auto) 0.1 0 Basophils (%) (Auto) 0.2 0.3 Neutrophils # (Auto) 11.9 H 11.4 H Lymphocytes # (Auto) 1.8 1.7 Monocytes # (Auto) 1.4 H 1.2 H Eosinophils # (Auto) 0.0 0.0 Basophils # (Auto) 0.0 0.0 CBC Comment Sodium Level 142 Potassium Level 3.2 L Chloride Level 99 Carbon Dioxide Level 28.3 Anion Gap 15 Blood Urea Nitrogen 18 Creatinine 0.87 Estimated GFR/1.73 m2 72 BUN/Creatinine Ratio 20.7 H Glucose Level 140 H Calcium Level 9.8 Albumin 4.1 Chemistry Comments Urine Specimen Description Straight cath Urine Color Dark yellow Urine Clarity Slightly cloudy Urine pH 7.0 Urine Specific [place] 1.020 Urine Protein >=300 H Urine Glucose (UA) Negative Urine Ketones 15 H Urine Occult Blood Moderate H Urine Nitrite Negative Urine Bilirubin Moderate Urine Urobilinogen 2.0 H Urine Leukocyte Esterase Negative Urine RBC 10-20 Urine WBC 5-10 H Urine Squamous Epithelial Cells Moderate Urine Transitional Epithelial Cells Moderate Urine Bacteria 1+ Urine Hyaline Casts 0-3 Urine Coarse Granular Casts 3-5 Urine Mucus Many Urine Culture Indicated Indicated Volume Urine Centrifuged 10 ml Urine Comment Microbiology Date/Time Source Procedure Growth Status 02/17/25 11:12 Urine Straight Cath Urine Culture - Preliminary Culture received. Resulted Medical Decision Making Findings This 40-year-old female with a history of drug abuse was treated for nausea vomiting and dehydration while in the ED. also gave her some clonidine and sent her script of clonidine to help with opioid withdrawal. In comparison to her previous laboratory studies , she maintains with a an elevated H&H. It did trend downward after providing of fluid boluses. However, she remains high but this is comparative to her previous lab values. At this time, I am going to treated for the UTI and discharge her for outpatient therapy which has access to from the [facility] Departure Disposition: HOME / SELF CARE / HOMELESS Impression: Primary Impression: Polysubstance abuse Additional Impressions: Opiate withdrawal UTI (urinary tract infection) Hypokalemia Condition: Stable Referrals: NO PRIMARY CARE PROVIDER (PCP) Prescriptions Potassium Chloride* (K-Dur*) 20 Meq Tab.prt.sr 1 TAB PO DAILY for 30 Days, #30 TAB Prov: DANY KOHLI NP 02/17/25 Sulfamethoxazole/Trimethoprim (Bactrim Ds Tablet) 800 Mg-160 Mg Tablet 1 TAB PO Q12H for 10 Days, #20 TAB Prov: DANY KOHLI NP 02/17/25 Clonidine HCl (Clonidine HCl) 0.1 Mg Tablet 1 TAB PO HS for 30 Days, #30 TAB 0 Refills Prov: DANY KOHLI NP 02/17/25 Education Educated: Patient Educated regarding: diagnosis Signature Scribe Signature: f Attestation: Scribed for Dany Kohli Combine Inspector by Dany Tamayo NP . 02/17/25 17:26 DANY KOHLI NP Feb 17, 2025 09:36
[2025-02-17] MEDS ORDERED: CLON0.1T2 PO (09:37)
[2025-02-17 09:41] LABS: MEAN PLATELET VOLUME 7.7 FL (7.4-10.4); RED CELL DISTRIBUTION WIDTH 15.6 % (11.5-14.5)
[2025-02-17 09:54] LABS: CREATININE 0.87 MG/DL (0.40-0.90); TOTAL CARBON DIOXIDE 28.3 MMOL/L (24-32); eCRCL 67 ML/MIN; eGFR 72 ML/MIN
[2025-02-17] MEDS: cloNIDine 0.1 MG/24 HOUR patch (7 day patch) TD ONE (10:02)
[2025-02-17] MEDS: normal saline 1000ML IV soln IVB ONE (10:56)
[2025-02-17 10:59] LABS: LEUKOCYTE ESTERASE ,URINE NEGATIVE (Neg); NITRITES, URINE NEGATIVE (Neg); OCCULT BLOOD,URINE MODERATE (Neg)
[2025-02-17 11:04] LABS: UA COLLECTION TYPE STRAIGHT CATH
[2025-02-17 11:06] LABS: HYALINE CASTS 0-3 /LPF (NEGATIVE); MUCUS STRANDS MANY /LPF (Neg)
[2025-02-17 11:11] LABS: SQUAMOUS EPITHELIAL CELL,UR MODERATE /LPF (FEW)
[2025-02-17 12:57] LABS: MEAN PLATELET VOLUME 8.1 FL (7.4-10.4); RED CELL DISTRIBUTION WIDTH 15.5 % (11.5-14.5)
[2025-02-17] MEDS: hydrALAZINE 20mg/ml inj. IV ONE (13:49)
[2025-02-17] MEDS ORDERED: SULF1TAB49 PO (13:55)
[2025-02-17] MEDS: ondansetron/PF 4mg/2ml inj IV ONE (14:13)
[2025-02-17] MEDS: sulfamethoxazole/trimethoprim DS (800/160mg) tablet PO ONE (15:15)
[2025-02-17 15:34] VITALS: BP 185/126; PULSE 95; RESP 16; O2SAT 99
[2025-02-17] MEDS ORDERED: POTA-207 PO (17:28)
== END 2025-02-17 15:20 | disposition home or self-care (01) ==
LOC: ER 08:39
DX: F11.23 Opioid dependence with withdrawal (principal); N39.0 Urinary tract infection, site not specified; E87.6 Hypokalemia; Z79.899 Other long term (current) drug therapy; Z88.8 Allergy status to other drugs, medicaments and biological substances
CPT/HCPCS: 36415; 80048; 81001; 85025; 87088; 96361; 96374; 96375; 99285; J0360; J2405; J7030; A4353